=== PATIENT | male | born 1990 | race Caucasian/White ===

== ENCOUNTER 2017-04-01 15:23 | Emergency (ER) | payer MEDICAID ==
[~2017-04-01] VITALS: Ht 177.8 cm; Wt 65.8 kg
[2017-04-01 15:28] VITALS: BP 113/66
--- NOTE | 2017-04-01 15:30 | NUR ---
PATIENT PRESENTS TO ED WITH C/O RIGHT KNEE PAIN . PT STATES HE WAS JUMPING OVER UNEVEN GROUND AND LANDED HARD, CAUSING IMMEDIATE PAIN TO HIS RIGHT KNEE . DENIES N/V/D; SKIN IS PINK/WARM/DRY; AAOX4 WITH EVEN AND STEADY GAIT; LUNGS CLEAR BL; HR EVEN AND REGULAR; PT DENIES ANY FEVER, CP, SOB, OR COUGH AT THIS TIME; PATIENT STATES PAIN OF 10/10 AT THIS TIME; VSS; ER MD MADE AWARE OF PT STATUS.
[2017-04-01] MEDS ORDERED: HYDROcodone/APAP 5/325 MG 1 TAB TAB PO ONE (16:00)
--- NOTE | 2017-04-01 16:30 | NUR ---
Patient going to XRAY via wheelchair per tech.
--- NOTE | 2017-04-01 16:50 | NUR ---
Patient back from XRAY via wheelchair per tech.
[2017-04-01 19:05] VITALS: BP 112/72
--- NOTE | 2017-04-01 19:05 | NUR ---
Patient discharged with v/s stable. Written and verbal after care instructions given and explained. Patient alert, oriented and verbalized understanding of instructions. Wheel Chair Assisted with to LOBBY. All questions addressed prior to discharge. ID band removed. Patient advised to follow up with PMD. Rx of MOTRIN given. Patient educated on indication of medication including possible reaction and side effects. Opportunity to ask questions provided and answered.
== END 2017-04-01 19:05 | disposition home or self-care (01) ==
LOC: MED 15:23
DX: M25.561 Pain in right knee (principal)
CPT/HCPCS: 29505; 73562; 73590; 99284

== ENCOUNTER 2017-07-19 11:22 | Inpatient (IN) | payer SELFPAY ==
[~2017-07-19] VITALS: Ht 175.3 cm; Wt 58.1 kg
[2017-07-19 11:31] VITALS: BP 126/51
--- NOTE | 2017-07-19 12:04 | NUR ---
Patient ambulated to bed 5. RN evaluating patient at bedside.
--- NOTE | 2017-07-19 12:10 | NUR ---
PATIENT PRESENTS TO ED WITH C/O PRESSURE TYPE HEADACHE X 4 DAYS WITH SEVERE NAUSEA AND DIZZINESS;DENIES INJURY, NO FACIAL ASYMMETRY NOTED, FULL CLEAR SPEECH, EQUAL SWAMPER/PUSHES/PULLS, AMBULATORY WITH STEADY GAIT;SKIN IS PINK/WARM/DRY; AAOX4 WITH EVEN AND STEADY GAIT; LUNGS CLEAR BL; HR EVEN AND REGULAR; PT DENIES ANY FEVER, CP, SOB, OR COUGH AT THIS TIME; PATIENT STATES PAIN OF 10/10 AT THIS TIME; PATIENT POSITIONED FOR COMFORT; HOB ELEVATED; BEDRAILS UP X2; BED DOWN. ER MD MADE AWARE OF PT STATUS.
[2017-07-19] MEDS ORDERED: PROCHLORPERAZINE 10 MG/2 ML VIAL IVP ONE (12:50)
[2017-07-19] MEDS ORDERED: diphenhydrAMINE 50 MG/ML VIAL IVP ONE (12:50)
[2017-07-19] MEDS ORDERED: NACL 0.9% 500 ML IV ONE ×2 (12:50→13:50)
[2017-07-19 13:09] LABS: HEMOGLOBIN 15.4 g/dL (12.0-18.0)
[2017-07-19 13:16] LABS: HEMATOCRIT 45.9 % (36-52); MEAN CORPUSCULAR HEMOGLOBIN 29 pg (27-31); MEAN CORPUSCULAR HGB CONC 34 g/dL (33-37); MEAN CORPUSCULAR VOLUME 87 fL (80-94); PLATELET COUNT (AUTO) 272 K/uL (140-450); RED BLOOD CELL COUNT(AUTO) 5.26 MIL/uL (4.20-6.10); RED CELL DISTRIBUTION WIDTH 11.9 % (11.6-13.7); WHITE BLOOD COUNT (AUTO) 15.2 K/uL (4.8-10.8)
[2017-07-19 13:38] LABS: BASOPHILS % (MANUAL) 1 % (0-2); EOSINOPHILS % (MANUAL) 1 % (0-4); LYMPHOCYTES % (MANUAL) 10 % (20-46); MONOCYTES % (MANUAL) 9 % (5-12)
[2017-07-19 13:49] LABS: ANION GAP 10.8 (8-16); CARBON DIOXIDE 30.7 mmol/L (21-32); CHLORIDE 95 mmol/L (98-107); CREATININE 0.9 mg/dL (0.7-1.3); GFR ARICAN-AMERICAN 128 mL/min (>90); GLUCOSE 110 mg/dL (74-106); POTASSIUM 4.5 mmol/L (3.5-5.1); SODIUM SERUM 132 mmol/L (136-145); UREA NITROGEN, BLOOD 15 mg/dL (7-18)
[2017-07-19 13:50] LABS: ALBUMIN 3.6 g/dL (3.4-5.0); ASPARTATE AMINOTRANSFERASE 11 U/L (15-37); TOTAL BILIRUBIN 0.7 mg/dL (0.0-1.0)
--- NOTE | 2017-07-19 13:50 | NUR ---
WENT TO CT SCAN ACCOMPANIED BY TECH.
--- NOTE | 2017-07-19 14:00 | NUR ---
Patient returned from CT scan. RN re-evaluating patient at bedside.
--- NOTE | 2017-07-19 14:10 | NUR ---
PT UNABLE TO GIVE URINE SPECIMEN AT THIS TIME;
--- NOTE | 2017-07-19 15:51 | NUR ---
PT SLEEPING;NO ACUTE DISTRESS NOTED;WLL CONTINUE TO MONMITOR PT.
--- NOTE | 2017-07-19 16:19 | NUR ---
Dr. Peguero at bedside for lumbar puncture.
--- NOTE | 2017-07-19 16:22 | NUR ---
ER AT BEDSIDE DOING LUMBAR PUNCTURE;
[2017-07-19] MEDS ORDERED: MORPHINE SULFATE 4 MG/ML SYR IVP ONE (16:30)
[2017-07-19 16:48] LABS: APPEARANCE,URINE CLEAR (CLEAR); BILIRUBIN,URINE NEGATIVE (NEGATIVE); BLOOD, URINE NEGATIVE (NEGATIVE); COLOR,URINE YELLOW (YELLOW); LEUKOCYTE ESTERASE ,URINE NEGATIVE (NEGATIVE); NITRITE, URINE NEGATIVE (NEGATIVE); UGLUCOSE NEGATIVE (NEGATIVE)
[2017-07-19 16:57] LABS: BARBITURATE, URINE NEG. ng/ml (NEG <=200); BENZODIAZEPINE, URINE NEG. ng/mL (NEG <=200); CANNABINOID, URINE POS. ng/mL (NEG <=50); COCAINE, URINE NEG. ng/mL (NEG <=300); OPIATE, URINE NEG. ng/mL (NEG <=2000); PHENCYCLIDINE SCREEN,URINE NEG. ng/mL (NEG <=25)
[2017-07-19 17:28] LABS: CSF GLUCOSE 54 mg/dL (40-70); CSF PROTEIN 74.4 mg/dL (15-45)
--- NOTE | 2017-07-19 18:05 | NUR ---
PT RESTING ON BED;ALL MONITORS IN PLACED;WILL CONTINUE TO MONITOR PT.
[2017-07-19] MEDS ORDERED: VANCOMYCIN 1,000 MG in DEXTROSE 5% 250 ML IV ONE (18:25)
[2017-07-19] MEDS ORDERED: ONDANSETRON 4 MG/2 ML VIAL IVP PRN (18:45)
[2017-07-19] MEDS ORDERED: HYDROcodone/APAP 7.5/325 MG 1 TAB PO PRN (18:45)
[2017-07-19] MEDS ORDERED: ACETAMINOPHEN 325 MG TAB PO PRN (18:45)
--- NOTE | 2017-07-19 18:46 | NUR ---
Patient will be admitted to care of DR THOMSON. Admited to TELE. Will go to room 114. Belongings list completed. Report to KEE GILLIAM.
[2017-07-19] MEDS ORDERED: VANCOMYCIN 1,000 MG VIAL ONE (19:00)
[2017-07-19 19:12] LABS: CHOL/HDL RATIO 1.8 (1-4.5)
[2017-07-19] MEDS ORDERED: VANCOMYCIN PER PHARMACY MC PRN (19:30)
--- NOTE | 2017-07-19 19:30 | NUR ---
ADMITTED A 27M FROM ER. CAME BY WHEELCHAIR. AWAKE,ALERT AND ORIENTED X4. CAME DUE TO HEADACHE X4 DAYS. ON TELE MONITOR . AMBULATORY BUT SAYS HE HAS SLIGHT WEAKNESS AT THIS TIME. VITAL SIGNS TAKEN. WITH TEMP 100.4, ORAL. DR. GOODMAN CAME AND SEEN PT. SKIN INTACT. WITH IVF-ANTIBIOTICS INFUSING ,VANCO IV ON THE LT AC #20. PLAN OF CARE DISCUSSED AND VERBALIZED UNDERSTANDING. PLACED COMFORTABLY IN BED. WITH CALL LIGHT AND URINAL WITHIN EASY REACH. EDUCATED ON THE DROPLET ISOLATION . VERBALIZED UNDERSTANDING. WILL FOLLOW UP ADMIT ORDERS.
[2017-07-19 19:31] LABS: PROTHROMBIN TIME 10.1 secs (10.8-13.4)
[2017-07-19 19:50] VITALS: BP 111/65
[2017-07-19 19:51] LABS: FREE T4 (FREE THYROXINE) 1.14 ng/dL (0.76-1.46); MAGNESIUM 2.3 mg/dL (1.8-2.4); THYROID STIMULATING HORMONE 1.02 uIU/mL (0.34-3.74)
[2017-07-19] MEDS ORDERED: cefTRIAXone 2,000 MG VIAL ONE (20:09)
--- NOTE | 2017-07-19 20:10 | NUR ---
TEMP 100.4 (ORAL). COOLING MEASURES GIVEN. TYLENOL PO ALSO GIVEN PER ORDER. WILL CONTINUE TO MONITOR.
[2017-07-19] MEDS ORDERED: cefTRIAXone 2,000 MG in DEXTROSE 5% 100 ML IV SCH (21:00)
[2017-07-19] MEDS: DOCUSATE SODIUM 100 MG GELCAP PO SCH (21:20)
--- NOTE | 2017-07-19 21:40 | NUR ---
CXR DONE AT BEDSIDE. WILL FOLLOW UP RESULT.
[2017-07-19] MEDS: NACL 0.9% 1,000 ML IV SCH (22:43)
[2017-07-20] VITALS: BP 124/53
--- NOTE | 2017-07-20 02:00 | NUR ---
MADE ROUNDS. ASLEEP. NO S/S OF ANY DISCOMFORT NOTED.
[2017-07-20 04:13] VITALS: BP 118/57
--- NOTE | 2017-07-20 04:25 | NUR ---
VITAL SIGNS STABLE. AFEBRILE. WILL CONTINUE TO MONITOR.
[2017-07-20] MEDS: NACL 0.9% 1,000 ML IV SCH ×2 (05:30→12:59)
--- NOTE | 2017-07-20 06:30 | NUR ---
BLOOD WAS DRAWN THIS AM . WILL FOLLOW UP RESULT.
--- NOTE | 2017-07-20 07:20 | NUR ---
ENDORSED PT IN STABLE CONDITION TO AM NURSE.
--- NOTE | 2017-07-20 07:22 | NUR ---
RECEIVED HANDOFF REPORT FROM PM RN. PATIENT A&OX4. PATIENT DENIES PAIN. PATIENT DENIES HEADACHE. PATIENT SLEEPING UPON ENTRY. NO SIGNS OR SYMPTOMS OF ACUTE DISTRESS NOTED. IV SITE PATENT AND INTACT. SAFETY MEASURES ENSURED. CALL LIGHT WITHIN REACH. WILL CONTINUE TO MONITOR.
[2017-07-20 07:32] LABS: BASOPHILS # (AUTO) 0.3 K/uL (0.00-0.22); BASOPHILS % (AUTO) 2.4 % (0.0-2.0); EOSINOPHILS # (AUTO) 0.1 K/uL (0-0.4); EOSINOPHILS % (AUTO) 0.7 % (0.0-4.0); HEMATOCRIT 45.1 % (36-52); HEMOGLOBIN 14.9 g/dL (12.0-18.0); LYMPHOCYTES # (AUTO) 1.4 K/uL (2.0-11.5); LYMPHOCYTES % (AUTO) 13.2 % (20.5-51.1); MEAN CORPUSCULAR HEMOGLOBIN 29 pg (27-31); MEAN CORPUSCULAR HGB CONC 33 g/dL (33-37); MEAN CORPUSCULAR VOLUME 86 fL (80-94); MONOCYTES # (AUTO) 1.4 K/uL (0.8-1.0); MONOCYTES % (AUTO) 13.4 % (1.7-9.3); NEUTROPHILS # (AUTO) 7.6 K/uL (1.8-7.7); NEUTROPHILS % (AUTO) 70.3 % (42.2-75.2); PLATELET COUNT (AUTO) 260 K/uL (140-450); RED BLOOD CELL COUNT(AUTO) 5.23 MIL/uL (4.20-6.10); RED CELL DISTRIBUTION WIDTH 12.2 % (11.6-13.7); WHITE BLOOD COUNT (AUTO) 10.8 K/uL (4.8-10.8)
[2017-07-20 07:45] LABS: ANION GAP 11.9 (8-16); CARBON DIOXIDE 29.3 mmol/L (21-32); CREATININE 0.8 mg/dL (0.7-1.3); POTASSIUM 4.2 mmol/L (3.5-5.1)
[2017-07-20 08:00] VITALS: BP 104/59
[2017-07-20] MEDS ORDERED: VANCOMYCIN 1,000 MG in DEXTROSE 5% 250 ML IV SCH (09:00)
[2017-07-20] MEDS: DOCUSATE SODIUM 100 MG GELCAP PO SCH ×2 (09:28→21:21)
[2017-07-20] MEDS: LACTOBACILLUS RHAMNOSUS GG 1 EACH CAP PO SCH (09:28)
[2017-07-20] MEDS: PANTOPRAZOLE 40 MG INJ VIAL IVP SCH (09:29)
--- NOTE | 2017-07-20 09:47 | NUR ---
AM MEDS GIVEN WITH EDUCATION. PATIENT VERBALIZED UNDERSTANDING. PATIENT DENIES PAIN. NO SIGNS OR SYMPTOMS OF ACUTE DISTRESS NOTED. CALL LIGHT WITHIN REACH. WILL CONTINUE TO MONITOR.
[2017-07-20] MEDS ORDERED: DEXAMETHASONE 4 MG/ML VIAL IVP SCH (11:31)
[2017-07-20 12:00] VITALS: BP 109/63
[2017-07-20] MEDS: ACYCLOVIR 800 MG TAB PO SCH ×2 (12:58→21:21)
--- NOTE | 2017-07-20 13:12 | NUR ---
PATIENT AWAKE IN BED WATCHING TV. PATIENT DENIES PAIN. NO SIGNS OR SYMPTOMS OF ACUTE DISTRESS NOTED. CALL LIGHT WITHIN REACH. WILL CONTINUE TO MONITOR.
[2017-07-20 16:00] VITALS: BP 100/60
--- NOTE | 2017-07-20 17:41 | NUR ---
PT RESTING IN BED. NO S/S OF ACUTE DISTRESS. PT DENIES PAIN. CALL LIGHT WITHIN REACH. WILL CONTINUE TO MONITOR.
--- NOTE | 2017-07-20 19:13 | NUR ---
ENDORSED PLAN OF CARE TO PM RN. PATIENT STABLE. NO SIGNS OR SYMPTOMS OF ACUTE DISTRESS NOTED. SAFETY MEASURES ENSURED. CALL LIGHT WITHIN REACH. WILL CONTINUE TO MONITOR.
--- NOTE | 2017-07-20 19:30 | NUR ---
RECEIVED PT IN STABLE CONDITION FROM AM NURSE. AWAKE, ALERT AND ORIENTED. 4. ON TELE -SB-SR. WITH NO C/O ANY PAIN AT THIS TIME. WITH IVF INFUSING WELL ON THE LT AC#22. CLEAR AND PATENT. ON DROPLET ISOLATION DUE TO DX: MENINGITIS. PLAN OF CARE DISCUSSED AND VERBALIZED UNDERSTANDING. CALL LIGHT PLACED WITHIN REACH. WILL CONTINUE TO MONITOR.
[2017-07-20 20:00] VITALS: BP 113/59
--- NOTE | 2017-07-20 21:00 | NUR ---
TOOK ALL NIGHT MEDS . NO HEADACHE NOTED.
[2017-07-20] MEDS: DEXAMETHASONE 4 MG/ML VIAL IVP SCH (21:21)
--- NOTE | 2017-07-20 22:22 | NUR ---
PT SAID NO MORE ABDOMINAL PAIN . WILL CONTINUE TO MONITOR.
[2017-07-21 00:15] VITALS: BP 103/57
[2017-07-21] MEDS: NACL 0.9% 1,000 ML IV SCH ×2 (01:30→03:54)
--- NOTE | 2017-07-21 02:00 | NUR ---
ASLEEP. NO S/S OF ANY DISCOMFORT NOTED. WILL CONTINUE TO MONITOR.
[2017-07-21 04:10] VITALS: BP 103/54
[2017-07-21] MEDS: ACYCLOVIR 800 MG TAB PO SCH (05:08)
--- NOTE | 2017-07-21 05:30 | NUR ---
UP TO THE BATHROOM. NO BM NOTED. BED LINEN WAS CHANGED. NO C/O ANY PAIN NOTED AT THIS TIME.
[2017-07-21 06:02] LABS: BASOPHILS # (AUTO) 0.1 K/uL (0.00-0.22); BASOPHILS % (AUTO) 1.4 % (0.0-2.0); EOSINOPHILS # (AUTO) 0.1 K/uL (0-0.4); EOSINOPHILS % (AUTO) 0.7 % (0.0-4.0); HEMATOCRIT 44.9 % (36-52); HEMOGLOBIN 15.2 g/dL (12.0-18.0); LYMPHOCYTES # (AUTO) 0.8 K/uL (2.0-11.5); LYMPHOCYTES % (AUTO) 8.1 % (20.5-51.1); MEAN CORPUSCULAR HEMOGLOBIN 29 pg (27-31); MEAN CORPUSCULAR HGB CONC 34 g/dL (33-37); MEAN CORPUSCULAR VOLUME 87 fL (80-94); MONOCYTES # (AUTO) 0.5 K/uL (0.8-1.0); MONOCYTES % (AUTO) 4.8 % (1.7-9.3); NEUTROPHILS # (AUTO) 8.7 K/uL (1.8-7.7); PLATELET COUNT (AUTO) 299 K/uL (140-450); RED BLOOD CELL COUNT(AUTO) 5.18 MIL/uL (4.20-6.10); WHITE BLOOD COUNT (AUTO) 10.2 K/uL (4.8-10.8)
[2017-07-21 06:20] LABS: CARBON DIOXIDE 28.4 mmol/L (21-32); CREATININE 0.9 mg/dL (0.7-1.3); POTASSIUM 4.4 mmol/L (3.5-5.1)
[2017-07-21 06:28] LABS: MAGNESIUM 2.2 mg/dL (1.8-2.4); PHOSPHORUS 4.6 mg/dL (2.5-4.9)
--- NOTE | 2017-07-21 07:20 | NUR ---
ENDORSED PT IN STABLE CONDITION TO AM NURSE.
--- NOTE | 2017-07-21 07:25 | NUR ---
Patient's Plan of Care was discussed and reviewed with [employer]CH MACHINE OPERATOR: FRANKY Maxwell
--- NOTE | 2017-07-21 07:25 | NUR ---
ASSUMED CONTINUITY OF CARE. NO SIGNS AND SYMPTOMS OF ACUTE DISTRESS NOTED. INITIAL ASSESSMENT DONE. KEEP COMFORTABLE ON BED. EXPLAINED DIAGNOSIS, PLAN OF CARE, PAIN MANAGEMENT TEACHING, DROPLET ISOLATION PRECAUTION, USE OF CALL LIGHT/BED/TV/BATHROOM. VERBALIZED UNDERSTANDING. CALL LIGHT WITHIN REACH.
[2017-07-21 08:00] VITALS: BP 110/61
[2017-07-21] MEDS ORDERED: ACYC800T2 PO (08:11)
[2017-07-21] MEDS ORDERED: METH4TAB1 PO (08:11)
[2017-07-21] MEDS: LACTOBACILLUS RHAMNOSUS GG 1 EACH CAP PO SCH (08:50)
[2017-07-21] MEDS: DOCUSATE SODIUM 100 MG GELCAP PO SCH (08:50)
--- NOTE | 2017-07-21 09:13 | NUR ---
PATIENT HAS BEEN SCREENED AND CATEGORIZED HIGH NUTRITION RISK. PATIENT WILL BE SEEN WITHIN 1-2 DAYS OF ADMISSION. 07/20/17-07/21/[address]
[2017-07-21] MEDS: PANTOPRAZOLE 40 MG INJ VIAL IVP SCH (09:32)
[2017-07-21] MEDS: DEXAMETHASONE 4 MG/ML VIAL IVP SCH (09:32)
--- NOTE | 2017-07-21 10:20 | NUR ---
EXPLAINED PT. ABOUT MD D/C ORDER, D/C INSTRUCTIONS AND TEACHING, [facility] WITH DR. MAYBERRY FOLLOW-UP APPOINTMENT 07/24/2017 AT 10:30 AM AT , D/C PRESCRIPTION LIST EDUCATION, PAIN MANAGEMENT TEACHING, DISEASE MANAGEMENT TEACHING. VERBALIZED UNDERSTANDING.
--- NOTE | 2017-07-21 11:00 | NUR ---
D/C HOME VIA WHEELCHAIR. AWAKE, ALERT, AND ORIENTED X4. SPEECH CLEAR. NO C/O PAIN. NO SOB, NOTED. IN STABLE CONDITION. INFORMED CHARGE NURSE MILTON MELVIN.
== END 2017-07-21 11:00 | disposition home or self-care (01) | DRG 871 ==
LOC: MED 11:22 → MTU 18:45
PROVIDERS: ADMIT Family Medicine; ATTEND Family Medicine
PROC: 009U3ZX Drainage of Spinal Canal, Percutaneous Approach, Diagnostic (ICD-10-PCS; principal; 2017-07-19)
DX: A41.9 Sepsis, unspecified organism (principal); G03.0 Nonpyogenic meningitis; E87.1 Hypo-osmolality and hyponatremia; A87.9 Viral meningitis, unspecified; F15.10 Other stimulant abuse, uncomplicated; F12.10 Cannabis abuse, uncomplicated; Z88.8 Allergy status to other drugs, medicaments and biological substances; Z71.51 Drug abuse counseling and surveillance of drug abuser
CPT/HCPCS: 36415; 70450; 71010; 80048; 80053; 80305; 81003; 82140; 82150; 82948; 83036; 83605; 83690; 83735; 83880; 84100; 84157; 84439; 84443; 84484; 85025; 85610; 85730; 86171; 87040; 87070; 87075; 87081; 87086; 87205; 93005; 96361; 96365; 96375; 99285; C9113; G0482; J0696; J0780; J1100; J1200; J2270; J3370; J7030; J7060; Q0092

== ENCOUNTER 2017-12-25 11:11 | Emergency (ER) | payer SELFPAY ==
[~2017-12-25] VITALS: Ht 172.7 cm; Wt 64.0 kg
[~2017-12-25 11:11] MED LIST: ACYC800T2 PO; METH4TAB1 PO
[2017-12-25 11:44] VITALS: BP 116/56
--- NOTE | 2017-12-25 11:56 | NUR ---
DR. BOOGIE EVALUTING PT AT BEDSIDE
[2017-12-25] MEDS ORDERED: ONDANSETRON 4 MG ODT PO ONE (12:00)
[2017-12-25] MEDS ORDERED: DICYCLOMINE HCL LIQUID 20 MG, ALUMINUM HYD/MAG/SIMETHICONE 30 ML, LIDOCAINE VISCOUS 2% ... PO ONE ×3 (12:00)
--- NOTE | 2017-12-25 12:09 | NUR ---
PT COMES TO ER WITH COMPLAINS OF GRADUAL ONSET EPIGASTRIC PAIN, NON-RADIATING X 2 DAYS WITH N/V/D. DENIES FEVERS. DENIES ANY NEW FOODS OR MEDS. ABD NOÉ, NT, IN NAD. RESP EVEN AND UNLABORED. MEDICATED ORDERED. WILLMONITOR FOR ANY ADVERSE SIDE EFFECTS.
--- NOTE | 2017-12-25 12:21 | NUR ---
PT REPORTS FEELING BETTER AND DECREASE IN NAUSEA. VSS, ER NOTIFIED, WAIITNG FOR DISPO
[2017-12-25 12:31] VITALS: BP 116/56
--- NOTE | 2017-12-25 12:32 | NUR ---
Patient discharged with v/s stable. Written and verbal after care instructions given and explained. Patient alert, oriented and verbalized understanding of instructions. Ambulatory with steady gait. All questions addressed prior to discharge. ID band removed. Patient advised to follow up with PMD. Rx of ZOFRAN, MOTRIN given. Patient educated on indication of medication including possible reaction and side effects. Opportunity to ask questions provided and answered.
== END 2017-12-25 12:32 | disposition home or self-care (01) ==
LOC: MED 11:11
DX: R10.13 Epigastric pain (principal); R11.2 Nausea with vomiting, unspecified; R19.7 Diarrhea, unspecified; F17.210 Nicotine dependence, cigarettes, uncomplicated; Z88.8 Allergy status to other drugs, medicaments and biological substances; Z79.899 Other long term (current) drug therapy
CPT/HCPCS: 99283; S0119

== ENCOUNTER 2019-10-03 04:22 | Emergency (ER) | payer SELFPAY ==
[~2019-10-03] VITALS: Ht 175.3 cm; Wt 67.6 kg
[2019-10-03 04:22] VITALS: BP 131/88
[~2019-10-03 04:22] MED LIST changes: +ACYC-278 PO; -ACYC800T2 PO
--- NOTE | 2019-10-03 04:22 | NUR ---
TO BED # 04 AMBULATORY
--- NOTE | 2019-10-03 04:25 | NUR ---
PATIENT PRESENTS TO ED WITH C/O MIGRAINE H/A X3 DAYS. PT STATES HE HAS A MENINGITIS Hx. DENIES N/V/D; SKIN IS NORMAL COLOR/WARM/DRY; AAOX4 WITH EVEN AND STEADY GAIT; NON-LABORED RESP. HR EVEN AND REGULAR; PT DENIES ANY FEVER, CP, SOB, OR COUGH AT THIS TIME; PATIENT STATES PAIN OF 0/10 AT THIS TIME; VSS; PATIENT POSITIONED FOR COMFORT; HOB ELEVATED; BEDRAILS UP X2; BED DOWN. PENDING ER MD COONEY.
--- NOTE | 2019-10-03 04:36 | NUR ---
Dr. Anderson examining patient.
[2019-10-03] MEDS ORDERED: ONDANSETRON 4 MG ODT PO ONE (04:40)
[2019-10-03] MEDS ORDERED: KETOROLAC 60 MG/2 ML VIAL IM ONE (04:40)
[2019-10-03 05:23] LABS: BARBITURATE, URINE NEGATIVE ng/ml (NEG <=200)
[2019-10-03 05:24] LABS: BENZODIAZEPINE, URINE NEGATIVE ng/mL (NEG <=200); CANNABINOID, URINE POSITIVE ng/mL (NEG <=50); COCAINE, URINE NEGATIVE ng/mL (NEG <=300); OPIATE, URINE NEGATIVE ng/mL (NEG <=2000); PHENCYCLIDINE SCREEN,URINE NEGATIVE ng/mL (NEG <=25)
[2019-10-03 05:43] VITALS: BP 128/77
--- NOTE | 2019-10-03 05:43 | NUR ---
Patient discharged with v/s stable. Pt states pain reduced to 2/10 and tollerable. No n/v. No blurred vision or dizziness. Written and verbal after care instructions given and explained. Patient alert, oriented and verbalized understanding of instructions. Ambulatory with steady gait. All questions addressed prior to discharge. ID band removed. Patient advised to follow up with PMD. Rx of Ibuprofen given. Patient educated on indication of medication including possible reaction and side effects. Opportunity to ask questions provided and answered.
== END 2019-10-03 05:43 | disposition home or self-care (01) ==
LOC: MED 04:22
DX: R51 Headache (principal); R11.0 Nausea; H53.149 Visual discomfort, unspecified; Z88.8 Allergy status to other drugs, medicaments and biological substances; Z79.899 Other long term (current) drug therapy
CPT/HCPCS: 80305; 96372; 99283; J1885; Q0162

== ENCOUNTER 2019-10-05 02:00 | Emergency (ER) | payer SELFPAY ==
[~2019-10-05] VITALS: Ht 172.7 cm; Wt 65.8 kg
[2019-10-05 02:05] VITALS: BP 126/78
--- NOTE | 2019-10-05 02:35 | NUR ---
PT AMBULATED TO BED
--- NOTE | 2019-10-05 02:50 | NUR ---
29 Y/O M PRESENTS TO ED WITH C/O HEADACHE X1 DAY. PT SEEN IN ER ON 10/03 FOR SIMILAR SYMPTOMS AND WAS PRESCRIBED IBUPROFEN 800MG. PT SELF MEDICATED WITH IBUPROFEN AT 0100, NO RELIEF. 08/12 PRESSURE LIKE PAIN, NON-RADIAITNG. +NAUSEA AND LIGHT SENSITIVITY. BEDRAIL X2 UP. WILL CONTINUE TO MONITOR.
[2019-10-05] MEDS ORDERED: diphenhydrAMINE 50 MG/ML VIAL IVP ONE (03:05)
[2019-10-05] MEDS ORDERED: NACL 0.9% 1,000 ML IV ONE ×2 (03:05→04:40)
[2019-10-05] MEDS ORDERED: METOCLOPRAMIDE 10 MG/2 ML INJ VIAL IVP ONE (03:05)
--- NOTE | 2019-10-05 03:55 | NUR ---
PT TAKEN TO CT VIA WHEELCHAIR.
--- NOTE | 2019-10-05 04:03 | NUR ---
PT RETURNED FROM CT VIA WHEELCHAIR
[2019-10-05 04:04] VITALS: BP 104/56
--- NOTE | 2019-10-05 04:30 | NUR ---
PT SEEN WITH EYES CLOSED. VISIBLE CHEST RISE AND FALL NOTED. LIGHTS TURNED OFF FOR PT COMFORT. BEDRAILX1 UP. WILL CONTINUE TO MONITOR.
--- NOTE | 2019-10-05 05:48 | NUR ---
Patient discharged with v/s stable. Written and verbal after care instructions given and explained. Patient alert, oriented and verbalized understanding of instructions. Ambulatory with steady gait. All questions addressed prior to discharge. ID band removed. Patient advised to follow up with PMD. Rx of reglan and norco given. Patient educated on indication of medication including possible reaction and side effects. Opportunity to ask questions provided and answered.
== END 2019-10-05 05:48 | disposition home or self-care (01) ==
LOC: MED 02:00
DX: R51 Headache (principal); Z79.899 Other long term (current) drug therapy; Z88.8 Allergy status to other drugs, medicaments and biological substances
CPT/HCPCS: 70450; 96374; 96375; 99284; J1200; J2765; J7030